=== PATIENT | male | born 1950 | race Caucasian/White ===

== ENCOUNTER → 2019-02-14 | Day surgery (SDC) | payer MEDICARE ==
[~2019-02-14] MED LIST: ALEVE220 M1 PO; BALANCED SALT SOLN (OPTH) 15 ML BTL IO ONE; CRESTOR10 MG PO; FENTANYL CITRATE/PF 100MCG/2 ML INJ ONE; LIDOCAINE 2%/ EPINEPHRINE 20ML MDV ONE; MIDAZOLAM HCL 2 MG/2 ML VIAL ONE; NEOMYCIN/POLYMYXIN/DEX (OPTH) 3.5 GM TUBE ONE; POVIDONE IODINE 5% (OPTH) 30 ML BTL ONE; PROPOFOL IV EMULSION 10 MG/ML 20 ML VIAL ONE; TRAZODONE HCL50 MG PO; VIT D PO
--- OUTSIDE RECORDS SUMMARY | 2019-02-14 12:17 | XMS REPORT | Summary of Care ---
Author Author Salma Velasco [facility] Unknown Address Unknown Phone Unavailable Care Team Providers Care Seo Consultant Name Role Phone KEREN Flores, CELESTE Viramontes Unavailable KEREN MICHAEL [place], CELESTE Dubois Unavailable Unavailable Functional Status Name Dates Details Functional status health issues are not documented Status: Name Dates Details Cognitive status health issues are not documented Status: Problems Name Dates Details Left hip pain (719.45, M25.552) Status: Active Medications Name Dates Details Medications not documented Allergies and Adverse Reactions Name Dates Details Allergy history not documented Status: Procedures Procedure Dates Details Procedures not documented Immunization Name Dates Details Immunizations not documented Social History Name Dates Details Unknown if ever smoked Vital Signs Date Test Result Details No Known Vitals to report Results Date Description Value Details [id number] [U] XRAY HIP UNILATERAL WITH PELVIS WHEN PERFORMED 1 VW LEFT [id number] XR HIP UNILATERAL WITH PELVIS WHEN PERFORMED 1 VW LEFT Images acquired, not reported on this accession number. Plan of Care Name Dates Details Planned Observations Planned Goals not documented Interventions Provided Labs/Procedures/Imaging* [U] XRAY HIP UNILATERAL WITH PELVIS WHEN PERFORMED 1 VW LEFT [id number]; Done: 10 Nov 2018 Instructions Name Dates Details Instructions not documented Encounters Appointment; CELESTE VELIZ M.D. Encounter Diagnosis: Problem not documented On: 10-Nov-2018 14:30
[2019-02-14 16:25] VITALS: BP 131/81
== END | disposition home or self-care (01) ==
LOC: OR 12:14
PROVIDERS: ATTEND Ophthalmology
DX: H02.834 Dermatochalasis of left upper eyelid (principal); H02.831 Dermatochalasis of right upper eyelid; E78.5 Hyperlipidemia, unspecified; E11.9 Type 2 diabetes mellitus without complications; F17.290 Nicotine dependence, other tobacco product, uncomplicated
CPT/HCPCS: 15823; 36415; 82948; J2001; J2250; J2704